=== PATIENT | female | born 1995 | race Caucasian/White ===

== ENCOUNTER 2022-04-08 01:23 | Day surgery (SDC) | payer OTHER, SELFPAY ==
[2022-03-31 11:10] VITALS: BMI 25.1
--- NOTE | 2022-03-31 11:15 | PC.NURSE ---
Report to the Outpatient Waiting Room, entrance under the green pavilion located off [facility], at time 0845 on date 04/08/22. Planned Procedure Time: 1045. Time changes happen often and if your time is changed the preop area will call you the afternoon before. - You and your visitor will be asked to self-screen and do not enter if you have any COVID symptoms. - Only one visitor is requested with a max of two and NO children visitors are allowed at this time. - The patient visitor may be requested to leave or wait in car when not with patient due to distancing restrictions. - A mask is optional within the hospital at this time. Patients may have clear liquids (water, carbonated beverages, clear teas, apple juice) until 3 hours prior to surgery with a maximum of 20 ounces. - No food from midnight until time of surgery Take the following medications with a SIP of water the morning of surgery: NONE DO NOT STOP ANY OF YOUR OTHER PRESCRIPTION MEDICATIONS PRIOR TO SURGERY?EXCEPT THE FOLLOWING Medications to discontinue per physician: VITAMINS/SUPPLEMENTS Date to take last dose: 04/04/22 Please no make-up, nail liberian, hairspray, perfume, deodorant, or body powder the day of surgery. No jewelry (including any body piercings) or valuables the day of surgery, leave them at home. Please take a shower or bath the night before, or the morning of, surgery with an antibacterial soap. Wear comfortable, loose fitting clothing. - Jewelry must be removed prior to entering the operating room. Rings and piercings that are not removed may be cut off. - The hospital will not accept responsibility for valuables. - Please leave all valuables, including medications, at home the day of surgery. If you are going home after surgery, a licensed company driver must drive you home. - NO public transportation without another adult if you receive anesthesia. - We recommend that an adult stay with you for 24 hours following discharge. - We also recommend that you do not drive, make important decision, drink alcoholic beverages, or take any drugs that were not prescribed by your health care provider for at least 24 hours after your discharge time. Follow any additional instructions given to you from your surgeon. If you or anyone in your household have experienced Covid symptoms in the past week, please notify your surgeon or the nurse liaison at the phone number below for possible testing. Telephone instructions given to PT - FIFI NICHOLE and asked if any additional questions and then verbalized understanding. Patient advised to call surgeon office or pre surgery nurse liaison [phone] if any additional questions.
[2022-04-08] VITALS (9 sets, daily range): BP systolic 109–133; BP diastolic 65–87; PULSE 45–107; RESP 10–15; TEMP 36.1–36.9; O2SAT 99–100
--- NOTE | 2022-04-08 10:01 | P.PNAN_ITS ---
Anes - Initial Pre Proc Eval Procedure: Operation Date: 04/08/22 11:30 Proposed Procedures p Diagnostic Laparoscopy with Bilateral Salpingectomy Nexplanon Removal Left Arm - Mayda Resendez DO Date/Time: 04/08/22 10:01 Surgeon: Mayda Resendez DO Pre Op Diagnosis: desires sterilization Patient Data Age: 26 Gender: F Height: 1.65 m Weight: 68.5 kg Allergies Allergy/AdvReac Type Severity Reaction Status Date / Time No Known Allergies Allergy Verified 03/31/22 11:06 Home Medications Medication Instructions Recorded Confirmed Type cetirizine 10 mg tablet 10 mg PO DAILY 03/31/22 03/31/22 History clindamycin phosphate 1 % lotion 1 applic topical DAILY 03/31/22 03/31/22 History fluticasone propionate 50 1 spray intranasal DAILY 03/31/22 03/31/22 History mcg/actuation nasal spray,suspension multivitamin 1 tablet PO DAILY 03/31/22 03/31/22 History Patient hx anesthesia problems: none Family hx anesthesia problems: none Results Review: All pre-operative results and documents have been reviewed as part of the pre- operative evaluation. [facility]LY [facility] Social History Social History Smoking packs per day: 0.5 Smoking cigarettes per day: 10.0 Years smoked: 5 Smoking pack-years: 2.50 Smoking status: Former smoker Tobacco type: cigarettes Smoking end date: 02/10/20 Alcohol intake: never Substance use: current Substance use type: marijuana Living arrangements: with family Spiritual care concerns: No Anes - Eval Final PreProcedure Day of Procedure 04/08/22 10:01 Patient weight: normal Heart: regular rate and rhythm Lungs: clear to auscultation Airway: Mallampati scale class II Neurological: alert and oriented Last oral intake: >/= 8 hours ASA classification: II Emergent: no Anesthetic plan: proceed Anesthesia type and monitoring: general ETT and standard monitoring Results Review: All pre-operative results and documents have been reviewed as part of the pre-operative evaluation. Informed Consent: The patient's anesthetic plan and its attendant risks and benefits were discussed with the patient/family/POA. Questions were solicited and answers provided to the satisfaction of the patient/family/POA.
--- NOTE | 2022-04-08 10:13 | PM.IMHP ---
H&P: HPI History of Present Illness Date/Time: 04/08/22 10:13 Chief Complaint: I'm here for my surgery Narrative: Patient presents desiring permanent sterilization and Nexplanon removal. Review of Systems Review of Systems: All systems reviewed & are unremarkable except as noted in HPI and below PMFSH Social History Social History Smoking packs per day: 0.5 Smoking cigarettes per day: 10.0 Years smoked: 5 Smoking pack-years: 2.50 Smoking status: Former smoker Tobacco type: cigarettes Smoking end date: 02/10/20 Alcohol intake: never Substance use: current Substance use type: marijuana Living arrangements: with family Spiritual care concerns: No Meds Home Medications and Allergies Home Medications Medication Instructions Recorded Confirmed Type cetirizine 10 mg tablet 10 mg PO DAILY 03/31/22 03/31/22 History clindamycin phosphate 1 % lotion 1 applic topical DAILY 03/31/22 03/31/22 History fluticasone propionate 50 1 spray intranasal DAILY 03/31/22 03/31/22 History mcg/actuation nasal spray,suspension multivitamin 1 tablet PO DAILY 03/31/22 03/31/22 History Allergies Allergy/AdvReac Type Severity Reaction Status Date / Time No Known Allergies Allergy Verified 03/31/22 11:06 Exam Const: General: comfortable and no acute distress Eyes: General: appearance normal, both eyes and all related structures Neck: Neck: supple Resp: Effort & Inspection: normal respiratory effort Auscultation: clear to auscultation bilaterally Cardio: Rate: regular rate Rhythm: regular rhythm GI: GI Palp: Yes Soft to palpation Auscultation: normal bowel sounds Skin: General skin exam: normal color and no rashes or lesions noted Neuro: General: gait normal Speech: normal speech Psych: Mental Status: mental status grossly normal Affect: normal affect Assessment and Plan Assessment and plan (1) Sterilization: Code(s): Z30.2 - Encounter for sterilization Status: Acute (2) Presence of subdermal contraceptive implant: Code(s): Z97.5 - Presence of (intrauterine) contraceptive device Status: Acute Plan Diagnostic laparoscopy, bilateral salpingectomy, Nexplanon removal
[2022-04-08] MEDS: LACTATED RINGERS 1,000 ML 30 ML IV CONT ×2 (10:15→11:38)
[2022-04-08] MEDS: ACETAMINOPHEN 500 MG TABLET 1000 MG PO (10:15)
[2022-04-08] MEDS: GABAPENTIN 300 MG CAPSULE PO (10:15)
--- NOTE | 2022-04-08 10:15 | WPDHPUPDATE1 ---
History and Physical Update Update Date/Time: 04/08/22 10:15 History and Physical has been reviewed, including an updated exam of the patient. There are NO changes in the patient's condition. Risks, benefits, and alternatives have been discussed and questions answered. Patient agrees to proceed with procedure.
[2022-04-08] MEDS: BUPivacaine HCL 0.25% PF 30 ML VIAL INFILTRATE (11:15)
--- NOTE | 2022-04-08 11:41 | W.PM.PROC2 ---
Procedure Note - Detailed Date of Procedure 04/08/22 Pre-op Diagnosis desires sterilization Post-op Diagnosis Same (Removal of subdermal contraceptive implant) Procedure Performed Diagnostic laparoscopy, bilateral salpingectomy, right ovarian cystectomy. Removal of Nexplanon from left upper arm. Surgeon Mayda Resendez DO Atmospheric Physicist Meghana Anesthesia General Indications Desires permanent sterilization, desires removal of subdermal contraceptive implant Findings Normal appearing vulva and vaginal canal, medium cervix. Uterus sounded to 8 cm. Internally, the liver bowels and pelvic organs were unremarkable except for a large left ovarian cyst, possibly 5-6 cm in size. This is tender somewhat purplish 6 exterior and internally appeared comprised of some gelatinous and hemorrhagic material. Description of Procedure Patient was taken to the operating room where she was placed under general anesthesia. She was prepped and draped in the normal sterile fashion in a dorsal lithotomy position. No preoperative antibiotics were indicated. A time-out was performed. A speculum was placed in the vagina the cervix was visualized. The anterior cervix was grasped with a long Allis clamp and the uterus was sounded to 8 cm. A Kroner uterine manipulator was placed. The speculum was removed, gloves were changed and attention was then turned to the abdomen. The skin below the umbilicus was grasped with 2 penetrating towel clamps. The area was injected with local and a small incision was made. A Veress needle was introduced the saline water drop test was performed. CO2 insufflation was started and the abdomen was brought to a filling pressure of 15 mmHg. Veress needle was then replaced with a 5 mm Optiview trocar which was introduced under direct visualization. Survey of the abdomen revealed no evidence of bowel or vascular injury upon initial entry. The patient was then placed in steep Trendelenburg position. Additional port sites of the right and left lower quadrants were identified and injected. Small incisions were made and 5 mm trocars were introduced under direct visualization. The pelvic organs were surveyed and found as above. The right tube was elevated and cauterized and transected off using the LigaSure. It was handed off through the assistant sales center manager port for pathology. On the left-hand side the cyst wall was transected and the cyst was shelled out as was made mostly gelatinous material this fluid was suctioned out of the pelvis. The remainder of the hemorrhagic portion of the cyst was removed through the trocar the excess cyst tissue was trimmed off of the ovary. The dissection bed was found to be hemostatic. The left tube was then elevated and cauterized and transected off using LigaSure and this was also passed off through the assistant sales center manager port. Three specimens were removed total. The points of dissection were reviewed and found to be hemostatic. The instruments and trocars were removed and the CO2 gas was allowed to escape. The abdominal incisions were closed with 4-0 Monocryl in a subcuticular fashion. Uterine manipulator was removed. The left arm was then prepped on the AR board. The area was prepped with Betadine and draped with towels. The skin was injected with local anesthetic. A small natalie was made and the device was removed through the incision. The area was made hemostatic with pressure and was covered with Steri-Strips and a small Tegaderm with gauze. Patient was taken to the recovery room in stable condition. All instrument and sponge counts were correct at the conclusion of the procedure. Estimated Blood Loss 5 Drains No Packing No Pathology Yes Complications No immediate complications Condition Stable Disposition PACU
[2022-04-08] MEDS: fentaNYL CITRATE INJ (*CRX) 100 MCG/2 ML VIAL 25 MCG IV PUSH ×2 (12:04→12:28)
[2022-04-08] MEDS: ONDANSETRON INJ 4 MG/2 ML VIAL IV PUSH (12:27)
[2022-04-08] MEDS: IBUPROFEN 400 MG TABLET 800 MG PO (13:34)
== END 2022-04-08 13:44 | disposition home or self-care (01) ==
PROVIDERS: Visit Provider Obstetrics & Gynecology Gynecologic Oncology
PROC: (CPT 49320; principal; 2022-04-08 11:30)
DX: Z30.2 Encounter for sterilization (principal); Z30.46 Encounter for surveillance of implantable subdermal contraceptive; N83.01 Follicular cyst of right ovary; Z87.891 Personal history of nicotine dependence
CPT/HCPCS: 11982; 59151; 58662; 88302; 88305; A9270; J1100; J2250; J2405; J2704; J2710; J3010; J7030; J7120